=== PATIENT | male | born 1950 | race Two or more races ===

== ENCOUNTER 2018-05-12 11:27 | Outpatient (CLI) | payer OTHER | END 2018-05-12 12:02 | disposition home or self-care (01) | LOC: RAD 11:27 | DX: M15.8 Other polyosteoarthritis (principal) ==

== ENCOUNTER 2018-11-28 09:29 | Outpatient (CLI) | payer OTHER | END 2018-11-28 09:36 | disposition home or self-care (01) | LOC: RAD 09:29 | DX: Z01.811 Encounter for preprocedural respiratory examination (principal) ==

== ENCOUNTER 2018-12-25 15:03 | Outpatient (CLI) | payer OTHER | END 2018-12-25 15:13 | disposition home or self-care (01) | LOC: LAB 15:03 | DX: Z96.651 Presence of right artificial knee joint (principal) ==

== ENCOUNTER → 2019-02-01 15:07 | Outpatient (CLI) | payer OTHER | END | disposition home or self-care (01) | LOC: LAB 15:07 | DX: L02.415 Cutaneous abscess of right lower limb (principal); E10.621 Type 1 diabetes mellitus with foot ulcer ==

== ENCOUNTER 2019-02-14 11:03 | Outpatient (CLI) | payer OTHER | END 2019-02-14 11:23 | disposition home or self-care (01) | LOC: LAB 11:03 | DX: E11.621 Type 2 diabetes mellitus with foot ulcer (principal) ==

== ENCOUNTER 2019-02-21 11:03 | Outpatient (CLI) | payer OTHER | END 2019-02-21 11:09 | disposition home or self-care (01) | LOC: LAB 11:03 | DX: L89.899 Pressure ulcer of other site, unspecified stage (principal); E11.621 Type 2 diabetes mellitus with foot ulcer ==

== ENCOUNTER → 2019-03-16 10:55 | Outpatient (CLI) | payer OTHER | END | disposition home or self-care (01) | LOC: LAB 10:55 | DX: L02.415 Cutaneous abscess of right lower limb (principal) ==

== ENCOUNTER 2019-03-23 11:18 | Outpatient (CLI) | payer OTHER | END 2019-03-23 11:29 | disposition home or self-care (01) | LOC: LAB 11:18 | DX: L02.415 Cutaneous abscess of right lower limb (principal) ==

== ENCOUNTER 2019-04-06 10:18 | Outpatient (CLI) | payer OTHER | END 2019-04-06 15:00 | disposition home or self-care (01) | LOC: LAB 10:18 | DX: L02.415 Cutaneous abscess of right lower limb (principal) ==

== ENCOUNTER 2019-05-05 10:43 | Outpatient (CLI) | payer OTHER | END 2019-05-05 11:07 | disposition home or self-care (01) | LOC: LAB 10:43 | DX: L02.415 Cutaneous abscess of right lower limb (principal) ==

== ENCOUNTER → 2019-05-25 10:31 | Outpatient (CLI) | payer OTHER | END | disposition home or self-care (01) | LOC: LAB 10:31 | DX: L02.415 Cutaneous abscess of right lower limb (principal) ==

== ENCOUNTER 2019-06-29 13:23 | Outpatient (CLI) | payer OTHER | END 2019-06-29 13:27 | disposition home or self-care (01) | LOC: LAB 13:23 | DX: L02.415 Cutaneous abscess of right lower limb (principal) ==

== ENCOUNTER 2020-02-12 11:14 | Outpatient (CLI) | payer OTHER | END 2020-02-12 11:20 | disposition home or self-care (01) | LOC: RAD 11:14 | PROVIDERS: ATTEND Orthopaedic Surgery | DX: Z96.651 Presence of right artificial knee joint (principal) ==

== ENCOUNTER 2020-03-18 11:56 | Outpatient (CLI) | payer OTHER | END 2020-03-18 12:18 | disposition home or self-care (01) | LOC: RAD 11:56 | PROVIDERS: ATTEND Orthopaedic Surgery | DX: Z96.651 Presence of right artificial knee joint (principal) ==

== ENCOUNTER 2020-06-24 11:30 | Outpatient (CLI) | payer OTHER | END 2020-06-24 11:37 | disposition home or self-care (01) | LOC: RAD 11:30 | DX: M17.0 Bilateral primary osteoarthritis of knee (principal) ==

== ENCOUNTER 2020-10-16 09:53 | Outpatient (CLI) | payer OTHER | END 2020-10-16 10:12 | disposition home or self-care (01) | LOC: TOM 09:53 | DX: T84.53XD Infection and inflammatory reaction due to internal right knee prosthesis, subsequent encounter (principal) | CPT/HCPCS: 73701; Q9965 ==

== ENCOUNTER 2020-11-06 11:46 | Outpatient (CLI) | payer OTHER | END 2020-11-06 12:02 | disposition home or self-care (01) | LOC: RAD 11:46 | DX: M17.0 Bilateral primary osteoarthritis of knee (principal) ==

== ENCOUNTER 2021-03-02 14:03 | Outpatient (CLI) | payer OTHER | END 2021-03-02 14:16 | disposition home or self-care (01) | LOC: RAD 14:03 | PROVIDERS: ATTEND Ophthalmology | DX: I10 Essential (primary) hypertension (principal); Z98.42 Cataract extraction status, left eye; H25.012 Cortical age-related cataract, left eye ==

== ENCOUNTER 2021-09-22 08:00 | Outpatient (CLI) | payer OTHER | END 2021-09-22 08:30 | disposition home or self-care (01) | LOC: PPH VACUNA 08:00 | PROVIDERS: ATTEND Emergency Medicine Pediatric Emergency Medicine | DX: Z23 Encounter for immunization (principal) ==

== ENCOUNTER 2022-01-12 07:08 | Outpatient (CLI) | payer OTHER | END 2022-01-12 16:13 | disposition home or self-care (01) | LOC: SONOGRAMA 07:08 | PROVIDERS: ATTEND Internal Medicine Endocrinology, Diabetes & Metabolism | DX: E04.2 Nontoxic multinodular goiter (principal); R59.0 Localized enlarged lymph nodes ==

== ENCOUNTER 2022-01-12 11:05 | Outpatient (CLI) | payer OTHER | END 2022-01-12 11:06 | disposition home or self-care (01) | LOC: NUCLEAR 11:05 | PROVIDERS: ATTEND Internal Medicine Endocrinology, Diabetes & Metabolism | DX: Z13.820 Encounter for screening for osteoporosis (principal); M85.89 Other specified disorders of bone density and structure, multiple sites ==

== ENCOUNTER 2022-02-05 06:35 | Outpatient (CLI) | payer OTHER | END 2022-02-05 15:24 | disposition home or self-care (01) | LOC: TOM 06:35 | PROVIDERS: ATTEND Internal Medicine Endocrinology, Diabetes & Metabolism | DX: R16.0 Hepatomegaly, not elsewhere classified (principal); M17.0 Bilateral primary osteoarthritis of knee | CPT/HCPCS: 73560; 74178; Q9965 ==

== ENCOUNTER 2022-02-24 07:09 | Outpatient (CLI) | payer OTHER | END 2022-02-24 07:12 | disposition home or self-care (01) | LOC: NUCLEAR 07:09 | PROVIDERS: ATTEND Internal Medicine Endocrinology, Diabetes & Metabolism | DX: I65.29 Occlusion and stenosis of unspecified carotid artery (principal); I70.90 Unspecified atherosclerosis ==

== ENCOUNTER 2022-07-05 | Outpatient (CLI) | payer OTHER | END 2022-07-05 00:15 | disposition home or self-care (01) | LOC: PPH VACUNA | PROVIDERS: ATTEND Emergency Medicine Pediatric Emergency Medicine | DX: Z23 Encounter for immunization (principal) ==

== ENCOUNTER → 2023-03-10 | Outpatient (CLI) | payer OTHER | END | disposition home or self-care (01) | LOC: RAD 13:31 | DX: M12.00 Chronic postrheumatic arthropathy [Jaccoud], unspecified site (principal) ==

== ENCOUNTER 2024-03-08 14:46 | Outpatient (CLI) | payer OTHER | END 2024-03-08 15:10 | disposition home or self-care (01) | LOC: RAD 14:46 | PROVIDERS: ATTEND Specialist | DX: M25.551 Pain in right hip (principal); M25.552 Pain in left hip ==

== ENCOUNTER → 2024-08-28 | Outpatient (CLI) | payer OTHER | END | disposition home or self-care (01) | LOC: RAD 11:14 | PROVIDERS: ATTEND Internal Medicine Cardiovascular Disease | DX: I12.9 Hypertensive chronic kidney disease with stage 1 through stage 4 chronic kidney disease, or unspecified chronic kidney disease (principal); R06.02 Shortness of breath ==

== ENCOUNTER 2024-08-29 09:11 | Outpatient (CLI) | payer OTHER | END 2024-08-29 09:12 | disposition home or self-care (01) | LOC: NUCLEAR 09:11 | PROVIDERS: ATTEND Internal Medicine Cardiovascular Disease | DX: R42 Dizziness and giddiness (principal); I12.9 Hypertensive chronic kidney disease with stage 1 through stage 4 chronic kidney disease, or unspecified chronic kidney disease; E78.00 Pure hypercholesterolemia, unspecified; I65.22 Occlusion and stenosis of left carotid artery ==

== ENCOUNTER 2024-10-18 13:03 | Emergency (ER) | payer OTHER ==
[~2024-10-18] VITALS: Ht 188 cm; Wt 113.4 kg
[2024-10-18 13:54] VITALS: BP 111/68; O2SAT 90
[2024-10-18] MEDS ORDERED: COZAAR25 MG PO (14:24)
[2024-10-18] MEDS ORDERED: ROSUVASTATIN CA20 MG (14:25)
[2024-10-18] MEDS ORDERED: LEVOTHYROXINE25 MCG PO (14:25)
[2024-10-18] MEDS ORDERED: TOUJEO MAX300 UNIT/1 SQ (14:26)
[2024-10-18] MEDS ORDERED: TETANUS & DIPHTHERIA TOX,ADULT 0.5 ML VIAL IM ONE (14:45)
[2024-10-18 16:40] LABS: BASO % 0.6 % (0.1-1.2); HEMATOCRIT 47.4 % (40.1-51.0); HEMOGLOBIN 16.6 g/dL (13.7-17.5); LYMPH # 0.58 (1.18-3.74); LYMPH % 6.6 % (19.3-53.1); MEAN CORPUSCULAR HEMOGLOBIN 32.2 pg (25.6-32.2); MONO # 0.86 (0.24-0.82); MONO % 9.8 % (4.7-12.5); NEUT # 7.28 (1.56-6.13); NEUT % 82.5 % (34.0-71.1); RED BLOOD COUNT 5.16 M/uL (4.63-6.08); RED CELL DISTRIBUTION WIDTH 14.3 % (11.6-14.4)
[2024-10-18 16:46] LABS: PLATELET COUNT 127 K/uL (163-369)
[2024-10-18 16:57] LABS: CALCIUM 8.7 mg/dL (8.5-10.1); CREATININE SERUM 1.19 mg/dL (0.70-1.30); GFR 60.09; POTASSIUM 4.07 mEq/L (3.5-5.1)
== END 2024-10-18 18:32 | disposition home or self-care (01) ==
LOC: ER 13:09
PROVIDERS: Emergency Medicine
DX: S01.81XA Laceration without foreign body of other part of head, initial encounter (principal); W19.XXXA Unspecified fall, initial encounter; Y93.89 Activity, other specified; Y92.89 Other specified places as the place of occurrence of the external cause; Y99.8 Other external cause status; R55 Syncope and collapse; I10 Essential (primary) hypertension; E03.8 Other specified hypothyroidism; E11.9 Type 2 diabetes mellitus without complications; Z79.4 Long term (current) use of insulin
CPT/HCPCS: 13121; 13122 ×2; 36415; 70450; 90471; 90714; 93005; 99284; J1670

== ENCOUNTER 2024-10-23 08:16 | Outpatient (CLI) | payer OTHER ==
[~2024-10-23 08:16] MED LIST: COZAAR25 MG PO; LEVOTHYROXINE25 MCG PO; ROSUVASTATIN CA20 MG; TOUJEO MAX300 UNIT/1 SQ
== END 2024-10-23 08:30 | disposition home or self-care (01) ==
LOC: MRI 08:16
PROVIDERS: ATTEND Specialist
DX: G31.1 Senile degeneration of brain, not elsewhere classified (principal)
CPT/HCPCS: 70551

== ENCOUNTER 2025-02-28 09:41 | Outpatient (CLI) | payer OTHER | END 2025-03-06 08:28 | disposition home or self-care (01) | LOC: RAD 09:41 | DX: M17.0 Bilateral primary osteoarthritis of knee (principal) ==

== ENCOUNTER → 2025-03-05 | Outpatient (CLI) | payer OTHER | END | disposition home or self-care (01) | LOC: RAD 12:41 | PROVIDERS: ATTEND Specialist | DX: S29.9XXA Unspecified injury of thorax, initial encounter (principal) ==

== ENCOUNTER 2025-03-21 11:00 | Outpatient (CLI) | payer OTHER | END 2025-03-21 11:02 | disposition home or self-care (01) | LOC: NUCLEAR 11:00 | PROVIDERS: ATTEND Psychiatry & Neurology Clinical Neurophysiology | DX: R55 Syncope and collapse (principal); M85.89 Other specified disorders of bone density and structure, multiple sites; M81.0 Age-related osteoporosis without current pathological fracture ==

== ENCOUNTER 2025-04-22 12:53 | Outpatient (CLI) | payer OTHER | END 2025-04-22 13:59 | disposition home or self-care (01) | LOC: MRI 12:53 | DX: M51.360 Other intervertebral disc degeneration, lumbar region with discogenic back pain only (principal) | CPT/HCPCS: 72148 ==